=== PATIENT | female | born 1975 | race Two or more races ===

== ENCOUNTER 2016-09-18 15:49 | Outpatient (CLI) | payer OTHER ==
[2016-02-03 04:08] VITALS: BP 96/54
[2016-09-18 16:12] LABS: MEAN CORPUSCULAR HEMOGLOBIN 27.9 pg (28.0-34.0)
[2016-09-18 16:33] LABS: EOSINOPHILS % 3 % (0-7); MONOCYTES % 6 % (0-11); SEGMENTED NEUTROPHILS % 68 % (39-79)
[2016-09-18 16:37] LABS: eGFR (African) > 60; eGFR (Non-African) > 60
== END 2016-09-18 15:50 ==
LOC: LAB 15:49
PROVIDERS: ATTEND Internal Medicine Hematology & Oncology
DX: C50.411 Malignant neoplasm of upper-outer quadrant of right female breast (principal); D50.0 Iron deficiency anemia secondary to blood loss (chronic)
CPT/HCPCS: 36415; 80053; 82378; 82728; 83615; 84443; 85025; 85045; 85651; 86300

== ENCOUNTER 2018-03-10 19:48 | Outpatient (CLI) | payer OTHER ==
[2018-03-10] MEDS ORDERED: 0.9 % SODIUM CHLORIDE 1,000 ML IV ONE ×2 (20:11→20:59)
[2018-03-10 20:59] LABS: eGFR (Non-African) > 60
[2018-03-10 21:10] LABS: BASO % 0.2 % (0.0-1.5); EOS % 7.4 % (0.0-6.8); LYMPH ABS # 2.09 thou/uL (0.60-4.00); MCH. 30.6 pg (28.0-34.0); MCV 89.4 fL (80.0-100.0); MONOCYTE % 6.5 % (0.0-11.0); MONOCYTE ABS # 0.65 thou/uL (0.00-0.90); PLATELET COUNT 400 thou/uL (130-400)
[2018-03-10 23:07] VITALS: BP 114/71
== END 2018-03-10 19:50 ==
LOC: LAB 19:48 → INF 19:50
PROVIDERS: ATTEND Emergency Medicine
DX: E86.0 Dehydration (principal); K62.5 Hemorrhage of anus and rectum
CPT/HCPCS: 80053; 85025; J7030; 96360; 96361; S1016

== ENCOUNTER 2018-10-14 14:53 | Outpatient (CLI) | payer OTHER ==
[2018-10-14 15:22] LABS: MEAN CORPUSCULAR HEMOGLOBIN 23.6 pg (28.0-34.0)
[2018-10-14 15:23] LABS: BASOPHILS % 1 % (0-2); EOSINOPHILS % 8 % (0-7); HYPOCHROMASIA 1+ (NEGATIVE); MONOCYTES % 8 % (0-11); SEGMENTED NEUTROPHILS % 60 % (39-79)
[2018-10-14 15:32] LABS: eGFR (Non-African) > 60
== END 2018-10-14 14:54 ==
LOC: LAB 14:53
PROVIDERS: ATTEND Family Medicine
DX: K92.2 Gastrointestinal hemorrhage, unspecified (principal)
CPT/HCPCS: 36415; 80053; 85025

== ENCOUNTER 2018-11-18 08:50 | Outpatient (CLI) | payer OTHER ==
--- NOTE | 2018-11-18 10:15 | Diagnostic Imaging Report ---
SUZAN GARCIA [facility] [address] [facility] [address] [address] Report Submission Date: November 18, 2018 10:10:24 AM CDT Patient Study Name: MAJOR KULKARNI Date: November 18, 2018 9:05:55 AM CDT Modality Type: US Gender: F Description: US EXTREMITY VEINS UNILAT : 75 Institution: [facility] Physician: SUZAN GARCIA Examination: Ultrasound right vein. History: Upper extremity swelling Comparison exams: None provided Findings: Sonographic evaluation of the right upper extremity venous system including the internal jugular, subclavian, axillary, cephalic, brachial, basilic, radial, and ulnar veins. No evidence for luminal filling defect. Normal compressibility. Normal response to augmentation and respiratory variation. Upper margin of the cephalic vein is not visualized. Impression: No evidence for venous thrombosis. Electronically signed on November 18, 2018 10:10:24 AM CDT by: Severo ROBLEDO
== END 2018-11-18 08:52 ==
LOC: RAD 08:50
PROVIDERS: ATTEND Family Medicine
DX: M79.601 Pain in right arm (principal); R22.31 Localized swelling, mass and lump, right upper limb
CPT/HCPCS: 93971